=== PATIENT | male | born 1970 | race Hispanic/Latino ===

== ENCOUNTER → 2018-07-10 | Outpatient (CLI) | payer OTHER ==
[2018-07-10 13:48] VITALS: BP 114/82
== END | disposition home or self-care (01) ==
LOC: WHH 10:00
PROVIDERS: ATTEND Surgery
DX: L02.31 Cutaneous abscess of buttock (principal); I10 Essential (primary) hypertension; E78.5 Hyperlipidemia, unspecified; E55.9 Vitamin D deficiency, unspecified; M19.90 Unspecified osteoarthritis, unspecified site; F17.290 Nicotine dependence, other tobacco product, uncomplicated; K59.09 Other constipation
CPT/HCPCS: 99205; A6197; A6209; A6212

== ENCOUNTER → 2018-07-17 | Outpatient (CLI) | payer OTHER ==
[~2018-07-17] MED LIST: LIDOCAINE/PRILOCAINE CREAM 5GM TUBE TP ONE
[2018-07-17 14:05] VITALS: BP 101/65
== END | disposition home or self-care (01) ==
LOC: WHH 09:25
PROVIDERS: ATTEND Surgery
DX: L02.31 Cutaneous abscess of buttock (principal); I10 Essential (primary) hypertension; E78.5 Hyperlipidemia, unspecified; E55.9 Vitamin D deficiency, unspecified; K59.09 Other constipation; M19.90 Unspecified osteoarthritis, unspecified site; F17.290 Nicotine dependence, other tobacco product, uncomplicated
CPT/HCPCS: 87070; 87077; 87186; 99214; A6260; J3490; G0463

== ENCOUNTER → 2018-07-24 | Outpatient (CLI) | payer OTHER ==
[2018-07-24 13:04] VITALS: BP 121/82
== END | disposition home or self-care (01) ==
LOC: WHH 09:52
PROVIDERS: ATTEND Surgery
DX: L02.31 Cutaneous abscess of buttock (principal); I10 Essential (primary) hypertension; E78.5 Hyperlipidemia, unspecified; K61.1 Rectal abscess; K59.00 Constipation, unspecified; E55.9 Vitamin D deficiency, unspecified; M19.90 Unspecified osteoarthritis, unspecified site; F17.290 Nicotine dependence, other tobacco product, uncomplicated
CPT/HCPCS: 99214

== ENCOUNTER → 2018-08-01 | Outpatient (CLI) | payer OTHER ==
[~2018-08-01] MED LIST changes: +IOHEXOL-350 75 ML VIAL IV ONE; -LIDOCAINE/PRILOCAINE CREAM 5GM TUBE TP ONE
== END | disposition home or self-care (01) ==
LOC: RAH 08:37
PROVIDERS: ATTEND Surgery
DX: L02.31 Cutaneous abscess of buttock (principal)
CPT/HCPCS: 74178; Q9967

== ENCOUNTER → 2018-08-07 | Outpatient (CLI) | payer OTHER ==
[~2018-08-07] MED LIST changes: -IOHEXOL-350 75 ML VIAL IV ONE; +LIDOCAINE HCL 1% 20 ML VIAL ONE; +LIDOCAINE/PRILOCAINE CREAM 5GM TUBE TP ONE
[2018-08-07 14:16] VITALS: BP 131/92
--- NOTE | 2018-08-07 16:55 | NUR ---
I & D performed by Dr. Oriana Owens to left and right buttocks; wound care performed as ordered after procedure. Patient tolerated procedure without adverse effects or complaint. Addendum: 08/07/18 at 1658 by NIKOS GOETZ RN/TIFFANIE Amended: Links added.
== END | disposition home or self-care (01) ==
LOC: WHH 10:00
PROVIDERS: ATTEND Surgery
DX: L02.31 Cutaneous abscess of buttock (principal); I10 Essential (primary) hypertension; E78.5 Hyperlipidemia, unspecified; K61.1 Rectal abscess; K59.09 Other constipation; M19.90 Unspecified osteoarthritis, unspecified site; F17.200 Nicotine dependence, unspecified, uncomplicated
CPT/HCPCS: 10060; J3490; 10160

== ENCOUNTER → 2018-08-14 | Outpatient (CLI) | payer OTHER ==
[~2018-08-14] MED LIST changes: -LIDOCAINE HCL 1% 20 ML VIAL ONE; +LIDOCAINE HCL 2% JELLY 5 ML ONE; -LIDOCAINE/PRILOCAINE CREAM 5GM TUBE TP ONE
[2018-08-14 14:29] VITALS: BP 127/75
== END | disposition home or self-care (01) ==
LOC: WHH 10:00
PROVIDERS: ATTEND Surgery
DX: L98.412 Non-pressure chronic ulcer of buttock with fat layer exposed (principal); K61.1 Rectal abscess; I10 Essential (primary) hypertension; E78.5 Hyperlipidemia, unspecified; E55.9 Vitamin D deficiency, unspecified; K59.00 Constipation, unspecified; M19.90 Unspecified osteoarthritis, unspecified site; F17.200 Nicotine dependence, unspecified, uncomplicated
CPT/HCPCS: 99214

== ENCOUNTER → 2018-08-28 | Outpatient (CLI) | payer OTHER ==
[~2018-08-28] MED LIST changes: -LIDOCAINE HCL 2% JELLY 5 ML ONE; +LIDOCAINE HCL 4% LTA SOL 4 ML VIAL ONE; +LIDOCAINE/PRILOCAINE CREAM 5GM TUBE TP ONE
[2018-08-28 17:06] VITALS: BP 114/79
--- NOTE | 2018-08-28 17:28 | NUR ---
performed I/D at bedside; 1% lidocaine injected in area (2cc). #15 blade used to incise and unroof tunnel. 100% granulation, no purulent drainage, patient tolerated well. Addendum: 08/28/18 at 1730 by MIGUEL ÁNGEL BARRERA LVN LVN W Amended: Links added.
== END | disposition home or self-care (01) ==
LOC: WHH 10:00
PROVIDERS: ATTEND Surgery
DX: L98.412 Non-pressure chronic ulcer of buttock with fat layer exposed (principal); L02.31 Cutaneous abscess of buttock; K61.1 Rectal abscess; I10 Essential (primary) hypertension; E78.5 Hyperlipidemia, unspecified; E55.9 Vitamin D deficiency, unspecified; K59.00 Constipation, unspecified; M19.90 Unspecified osteoarthritis, unspecified site; F17.200 Nicotine dependence, unspecified, uncomplicated
CPT/HCPCS: 10060; 87070; 87077; 87186; A6021; J3490

== ENCOUNTER → 2018-09-04 | Outpatient (CLI) | payer OTHER ==
[2018-09-04 13:34] VITALS: BP 138/86
== END | disposition home or self-care (01) ==
LOC: WHH 09:30
PROVIDERS: ATTEND Surgery
DX: L98.412 Non-pressure chronic ulcer of buttock with fat layer exposed (principal); L02.31 Cutaneous abscess of buttock; K61.1 Rectal abscess; I10 Essential (primary) hypertension; E78.5 Hyperlipidemia, unspecified; E55.9 Vitamin D deficiency, unspecified; M19.90 Unspecified osteoarthritis, unspecified site; F17.200 Nicotine dependence, unspecified, uncomplicated
CPT/HCPCS: 99214

== ENCOUNTER → 2018-09-11 | Outpatient (CLI) | payer OTHER ==
[2018-09-11 13:48] VITALS: BP 127/84
== END | disposition home or self-care (01) ==
LOC: WHH 09:15
PROVIDERS: ATTEND Surgery
DX: L98.412 Non-pressure chronic ulcer of buttock with fat layer exposed (principal); L02.31 Cutaneous abscess of buttock; K61.1 Rectal abscess; I10 Essential (primary) hypertension; E78.5 Hyperlipidemia, unspecified; E55.9 Vitamin D deficiency, unspecified; M19.90 Unspecified osteoarthritis, unspecified site; F17.200 Nicotine dependence, unspecified, uncomplicated
CPT/HCPCS: 99214; A6248 ×2

== ENCOUNTER → 2018-09-25 | Outpatient (CLI) | payer OTHER ==
[2018-09-25 15:06] VITALS: BP 110/68
== END | disposition home or self-care (01) ==
LOC: WHH 09:30
PROVIDERS: ATTEND Surgery
DX: T81.89XD Other complications of procedures, not elsewhere classified, subsequent encounter (principal); L98.412 Non-pressure chronic ulcer of buttock with fat layer exposed; I10 Essential (primary) hypertension; E78.5 Hyperlipidemia, unspecified; K61.1 Rectal abscess; E55.9 Vitamin D deficiency, unspecified; M19.90 Unspecified osteoarthritis, unspecified site; F17.200 Nicotine dependence, unspecified, uncomplicated; Y83.8 Other surgical procedures as the cause of abnormal reaction of the patient, or of later complication, without mention of misadventure at the time of the procedure
CPT/HCPCS: 17250 ×2; A6021

== ENCOUNTER → 2018-10-17 | Outpatient (CLI) | payer OTHER ==
[~2018-10-17] MED LIST changes: +LIDOCAINE HCL 2% JELLY 5 ML ONE; -LIDOCAINE HCL 4% LTA SOL 4 ML VIAL ONE; -LIDOCAINE/PRILOCAINE CREAM 5GM TUBE TP ONE
[2018-10-17 11:50] VITALS: BP 121/82
== END | disposition home or self-care (01) ==
LOC: WHH 10:00
PROVIDERS: ATTEND Surgery
DX: T81.89XD Other complications of procedures, not elsewhere classified, subsequent encounter (principal); L98.412 Non-pressure chronic ulcer of buttock with fat layer exposed; L02.31 Cutaneous abscess of buttock; I10 Essential (primary) hypertension; E78.5 Hyperlipidemia, unspecified; K61.0 Anal abscess; F17.200 Nicotine dependence, unspecified, uncomplicated; M19.90 Unspecified osteoarthritis, unspecified site; E55.9 Vitamin D deficiency, unspecified; Y83.8 Other surgical procedures as the cause of abnormal reaction of the patient, or of later complication, without mention of misadventure at the time of the procedure
CPT/HCPCS: G0463